=== PATIENT | female | born 1980 | race African-American/Black ===

== ENCOUNTER 2019-08-13 21:05 | Inpatient (IN) | payer OTHER ==
[2019-08-13 22:22] VITALS: BMI 25.4
--- NOTE | 2019-08-14 03:34 | HP ---
CIWA Score Nausea/Vomitin Muscle Tremors: 4-Moderate,w/Arms Extend Anxiety: 3 Agitation: 3 Paroxysmal Sweats: 2 Orientation: 3-Disoriented Date>2 days Tacttile Disturbances: 0-None Auditory Disturbances: 0-None Visual Disturbances: 0-None Headache: 3-Moderate CIWA-Ar Total Score: 20 - Admission Criteria OASAS Guidelines: Admission for Medically Managed Detox: Requires at least one of the followin. CIWA greater than 12 2. Seizures within the past 24 hours 3. Delirium tremens within the past 24 hours 4. Hallucinations within the past 24 hours 5. Acute intervention needed for co occurring medical disorder 6. Acute intervention needed for co occurring psychiatric disorder 7. Severe withdrawal that cannot be handled at a lower level of care (continued vomiting, continued diarrhea, abnormal vital signs) requiring intravenous medication and/or fluids 8. Admission ROS S - [facility] Chief Complaint: Alcohol withdrawal symptoms Allergies/Adverse Reactions: Allergies Allergy/AdvReac Type Severity Reaction Status Date / Time No Known Allergies Allergy Verified 08/13/19 21:59 History of Present Illness: 39 years old female with a long history of alcohol dependence is seeking admission to detox. Patient reports prior detox admissions, last at [place], [place]. She reports medical history of anemia, heart murmur and psych. history of depression and anxiety. She reports suicide attempt in 2019 and denies suicidal ideation at this time. 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 Exam Limitations: No Limitations - Ebola screening Have you traveled outside of the country in the last 21 days: No (N) Have you had contact with anyone from an Ebola affected area: No Do you have a fever: No - Review of Systems Constitutional: Chills, Malaise, Night Sweats, Changes in sleep EENT: reports: Nose Congestion Respiratory: reports: No Symptoms reported Cardiac: reports: No Symptoms Reported GI: reports: Nausea, Poor Fluid Intake, Abdominal cramping : reports: No Symptoms Reported Musculoskeletal: reports: Back Pain, Muscle Pain Integumentary: reports: Dryness, Flushing Neuro: reports: Headache, Tremors Endocrine: reports: No Symptoms Reported Hematology: reports: Anemia (iron deficient anemia) Psychiatric: reports: Anxious, Depressed Other Systems: Reviewed and Negative Patient History - Patient Medical History Hx Anemia: Yes (Iron) Hx Asthma: No Hx Chronic Obstructive Pulmonary Disease (COPD): No Hx Cancer: No Hx Cardiac Disorders: Yes (Heart murmur) Hx Congestive Heart Failure: No Hx Hypertension: No Hx Hypercholesterolemia: No Hx Pacemaker: No HX Cerebrovascular Accident: No Hx Seizures: No Hx Diabetes: No Hx Gastrointestinal Disorders: No Hx Liver Disease: No Hx Genitourinary Disorders: No Hx Sexually Transmitted Disorders: No Hx Renal Disease (ESRD): No Hx Thyroid Disease: No Hx Human Immunodeficiency Virus (HIV): No (Negative 2018) Hx Hepatitis C: No Hx Depression: Yes Hx Suicide Attempt: Yes (Attempt in 2019, denies suicidal ideation at this time) Hx Bipolar Disorder: No Hx Schizophrenia: No Other Medical History: Anxiety - Patient Surgical History Past Surgical History: Yes Hx Neurologic Surgery: No Hx Cataract Extraction: No Hx Cardiac Surgery: No Hx Lung Surgery: No Hx Breast Surgery: No Hx Breast Biopsy: No Hx Abdominal Surgery: No Hx Appendectomy: No Hx Cholecystectomy: No Hx Genitourinary Surgery: No Hx Section: No Hx Orthopedic Surgery: No Hx Hysterectomy: No Other Surgical History: TUBAL LIGATION 2005 Anesthesia Reaction: No - PPD History Previous Implant?: Yes Documented Results: Negative w/o proof Implanted On Prior R Admission?: No PPD to be Administered?: Yes - Reproductive History Patient is a Female of Child Bearing Age (11 -55 yrs old): Yes Last Menstrual Period: 07/04/19 Patient : No - Smoking Cessation Smoking history: Current every day smoker Have you smoked in the past 12 months: Yes Aproximately how many cigarettes per day: 10 Hx Chewing Tobacco Use: No Initiated information on smoking cessation: Yes 'Breaking Loose' booklet given: 08/14/19 - Substance & Tx. History Hx Alcohol Use: Yes Hx Substance Use: Yes Substance Use Type: Alcohol, Cocaine, Marijuana Hx Substance Use Treatment: Yes ([place], [place]) - Substances abused Crack Substance route: Smoking Frequency: Daily Amount used: more than 8 balls. Age of first use: 33 Date of last use: 08/13/19 Alcohol Substance route: Oral Frequency: Daily Amount used: 1 galloon or 20 of beers. Age of first use: 20 Date of last use: 08/12/19 Admission Physical Exam [facility] - Vital Signs Vital Signs: Vital Signs - 24 hr 08/13/19 08/13/19 21:59 22:59 Temperature 97.1 F L 97.1 F L Pulse Rate 91 H 91 H Respiratory 20 20 Rate Blood Pressure 118/76 118/76 - Physical General Appearance: Yes: Tremorous, Anxious HEENTM: Yes: Within Normal Limits Respiratory: Yes: Lungs Clear, Normal Breath Sounds, No Respiratory Distress Neck: Yes: Supple Breast: Yes: Breast Exam Deferred Cardiology: Yes: Regular Rhythm, Regular Rate Abdominal: Yes: Normal Bowel Sounds Genitourinary: Yes: Within Normal Limits Back: Yes: Normal Inspection Musculoskeletal: Yes: Back pain, Muscle Pain Extremities: Yes: Tremors Neurological: Yes: Within Normal Limits Integumentary: Yes: Warm Lymphatic: Yes: Within Normal Limits - Diagnostic (1) Alcohol dependence with withdrawal, uncomplicated Current Visit: Yes Status: Acute (2) Nicotine dependence Current Visit: Yes Status: Chronic Qualifiers: Nicotine product type: cigarettes Substance use status: in withdrawal Qualified Code(s): F17.213 - Nicotine dependence, cigarettes, with withdrawal (3) Anemia Current Visit: Yes Status: Chronic Qualifiers: Anemia type: iron deficiency (4) Heart murmur Current Visit: Yes Status: Chronic (5) Depression Current Visit: Yes Status: Chronic Qualifiers: Depression Type: unspecified Qualified Code(s): F32.9 - Major depressive disorder, single episode, unspecified (6) Anxiety Current Visit: Yes Status: Chronic Cleared for Admission S - Detox or Rehab [facility] Level of Care: Medically Managed Detox Regimen/Protocol: Librium Claeared for Rehab Admission: No Breathalyzer - Breathalyzer Breathalyzer: 0 Urine Drug Screen - Test Device Lot number: [id number] Expiration date: 02/20/21 - Control Is test valid?: Yes - Results Drug screen NEGATIVE: No Urine drug screen results: THC-Marijuana, BRIDGETT-Cocaine Inpatient Rehab Admission - Rehab Decision to Admit Inpatient rehab admission?: No
[2019-08-14] MEDS ORDERED: IBUPROFEN 400 MG TABLET (FP) PO PRN (03:48)
[2019-08-14] MEDS ORDERED: MAG HYDROX/AL HYDROX/SIMETH 30 ML UNIT-DOSE CUP PO PRN (03:48)
[2019-08-14] MEDS ORDERED: BISMUTH SUBSALICYLATE 524 MG/30 ML UD PO PRN (03:48)
[2019-08-14] MEDS ORDERED: NICOTINE POLACRILEX 2 MG GUM BUC PRN (03:48)
[2019-08-14] MEDS ORDERED: chlordiazePOXIDE HCL 25 MG CAPSULE PO PRN (03:48)
[2019-08-14] MEDS ORDERED: hydrOXYzine PAMOATE 25 MG CAPSULE (FP) PO PRN (03:48)
[2019-08-14] MEDS ORDERED: ACETAMINOPHEN 325 MG TABLET (FP) PO PRN (03:48)
[2019-08-14] MEDS ORDERED: MAGNESIUM HYDROX 2400MG/30ML ORAL SUSPENSION 30 ML CUP PO PRN (03:48)
[2019-08-14] MEDS ORDERED: MAGNESIUM CITRATE 300 ML BOTTLE PO PRN (03:48)
[2019-08-14] MEDS: chlordiazePOXIDE HCL 25 MG CAPSULE PO SCH ×4 (04:46→22:12)
[2019-08-14] MEDS: METHOCARBAMOL 500 MG TABLET PO PRN ×2 (04:46→22:12)
[2019-08-14] MEDS: ACETAMINOPHEN 325 MG TABLET (FP) PO PRN ×2 (04:51→17:35)
[2019-08-14] MEDS: NICOTINE 14 MG/24 HOURS TOPICAL PATCH TD SCH (10:10)
[2019-08-14] MEDS: PRENATAL VITAMINS W/ FOLIC ACID TABLET (FP) PO SCH (10:10)
--- NOTE | 2019-08-14 10:31 | EKG ---
Test Reason : Blood Pressure : / mmHG Vent. Rate : 076 BPM Atrial Rate : 076 BPM P-R Int : 144 ms QRS Dur : 084 ms QT Int : 396 ms P-R-T Axes : 052 068 054 degrees QTc Int : 445 ms NORMAL SINUS RHYTHM NORMAL ECG NO PREVIOUS ECGS AVAILABLE Confirmed by MELI NORTH, NICKY ([id number]) on 08/14/2019 10:30:51 AM Referred By: Reza Shepherd Confirmed By:NICKY GARRISON MD
--- NOTE | 2019-08-14 12:52 | PN ---
S CIWA - CIWA Score Nausea/Vomitin-Mild Nausea/No Vomiting Muscle Tremors: 4-Moderate,w/Arms Extend Anxiety: 3 Agitation: 2 Paroxysmal Sweats: 2 Orientation: 0-Oriented Tacttile Disturbances: 0-None Auditory Disturbances: 0-None Visual Disturbances: 1-Very Mild Sensitivity Headache: 2-Mild CIWA-Ar Total Score: 15 S Progress Note (SOAP) Subjective: 39 years old female admitted on 08/14/19 for alcohol withdrawal sx management treating with librium detox regiment feeling ok today but tired prefers to stay in bed today limited conversation with staff Objective: 08/14/19 12:51 Vital Signs Temperature 98.8 F 08/14/19 04:25 Pulse Rate 83 08/14/19 09:35 Respiratory Rate 16 08/14/19 09:35 Blood Pressure 122/87 08/14/19 09:35 O2 Sat by Pulse Oximetry (%) Laboratory Last Values POC Urine HCG, Qual Negative 08/13/19 23:14 08/14/19 12:51 lab noted Assessment: 08/14/19 12:51 alcohol withdrawal Plan: librium regimen
[2019-08-14] MEDS: THIAMINE HCL 100 MG TABLET (FP) PO SCH (22:11)
[2019-08-14] MEDS: MELATONIN 5 MG TABLETS PO PRN (22:12)
[2019-08-15] MEDS: chlordiazePOXIDE HCL 25 MG CAPSULE PO SCH ×4 (06:08→22:28)
[2019-08-15] MEDS: ACETAMINOPHEN 325 MG TABLET (FP) PO PRN ×2 (06:54→22:30)
[2019-08-15 10:20] LABS: HEMATOCRIT 36.3 % (32.4-45.2); HEMOGLOBIN 11.5 GM/dL (10.7-15.3); MCH 23.9 pg (25.7-33.7); MCHC 31.8 g/dl (32.0-36.0); MEAN CELL VOLUME 75.2 fl (80-96); MEAN PLT VOLUME 9.2 fl (7.5-11.1); PLATELET COUNT 174 K/MM3 (134-434); RBC 4.82 M/mm3 (3.60-5.2); RDW 15.4 % (11.6-15.6); WHITE BLOOD COUNT 3.4 K/mm3 (4.0-10.0)
[2019-08-15 10:31] LABS: BILIRUBIN,TOTAL 0.1 mg/dL (0.2-1); CALCIUM 8.5 mg/dL (8.5-10.1); CREATININE 0.8 mg/dL (0.55-1.3); POTASSIUM 3.9 mmol/L (3.5-5.1); TOT PROT 6.1 g/dl (6.4-8.2)
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
[2019-08-15] MEDS: PRENATAL VITAMINS W/ FOLIC ACID TABLET (FP) PO SCH (10:51)
[2019-08-15] MEDS: METHOCARBAMOL 500 MG TABLET PO PRN ×2 (10:52→17:35)
[2019-08-15] MEDS: SERTRALINE HCL 50 MG TABLET (FP) PO SCH (11:27)
[2019-08-15] MEDS: NICOTINE 14 MG/24 HOURS TOPICAL PATCH TD SCH (11:29)
--- NOTE | 2019-08-15 13:18 | PN ---
S CIWA - CIWA Score Nausea/Vomitin Muscle Tremors: 2 Anxiety: 3 Agitation: 1-Slight > Activity Paroxysmal Sweats: 1-Minimal Palms Moist Orientation: 0-Oriented Tacttile Disturbances: 1-Very Mild Itch/Numbness Auditory Disturbances: 0-None Visual Disturbances: 1-Very Mild Sensitivity Headache: 1-Very Mild CIWA-Ar Total Score: 12 [facility] Progress Note (SOAP) Subjective: Patient is a 39 years old female w/ hx of alcohol dependence on librium detox protocol c/o of interrupted sleep, hot and cold sweats, bodyaches. Objective: 08/15/19 13:17 Vital Signs Temperature 97.6 F 08/15/19 09:25 Pulse Rate 85 08/15/19 09:25 Respiratory Rate 16 08/15/19 09:25 Blood Pressure 114/75 08/15/19 09:25 O2 Sat by Pulse Oximetry (%) Laboratory Last Values WBC 3.4 K/mm3 (4.0-10.0) L 08/15/19 08:00 RBC 4.82 M/mm3 (3.60-5.2) 08/15/19 08:00 Hgb 11.5 GM/dL (10.7-15.3) 08/15/19 08:00 Hct 36.3 % (32.4-45.2) 08/15/19 08:00 MCV 75.2 fl (80-96) L 08/15/19 08:00 MCH 23.9 pg (25.7-33.7) L 08/15/19 08:00 MCHC 31.8 g/dl (32.0-36.0) L 08/15/19 08:00 RDW 15.4 % (11.6-15.6) 08/15/19 08:00 Plt Count 174 K/MM3 (134-434) 08/15/19 08:00 MPV 9.2 fl (7.5-11.1) 08/15/19 08:00 Sodium 139 mmol/L (136-145) 08/15/19 08:00 Potassium 3.9 mmol/L (3.5-5.1) 08/15/19 08:00 Chloride 107 mmol/L (98-107) 08/15/19 08:00 Carbon Dioxide 26 mmol/L (21-32) 08/15/19 08:00 Anion Gap 6 MMOL/L (8-16) L 08/15/19 08:00 BUN 10.0 mg/dL (7-18) 08/15/19 08:00 Creatinine 0.8 mg/dL (0.55-1.3) 08/15/19 08:00 Est GFR (CKD-EPI)AfAm 106.13 08/15/19 08:00 Est GFR (CKD-EPI)NonAf 91.57 08/15/19 08:00 Random Glucose 85 mg/dL (74-106) 08/15/19 08:00 Calcium 8.5 mg/dL (8.5-10.1) 08/15/19 08:00 Total Bilirubin 0.1 mg/dL (0.2-1) L 08/15/19 08:00 AST 16 U/L (15-37) 08/15/19 08:00 ALT 15 U/L (13-61) 08/15/19 08:00 Alkaline Phosphatase 79 U/L (45-117) 08/15/19 08:00 Total Protein 6.1 g/dl (6.4-8.2) L 08/15/19 08:00 Albumin 3.0 g/dl (3.4-5.0) L 08/15/19 08:00 POC Urine HCG, Qual Negative 08/13/19 23:14 labs reviewed Assessment: 08/15/19 13:17 Patient AOx3 no acute distress EENT WNL Full ROM ambulating in the unit withdrawal sx Plan: increase fluids continue detox continue to monitor
[2019-08-15] MEDS: THIAMINE HCL 100 MG TABLET (FP) PO SCH (22:28)
[2019-08-15] MEDS: traZODone HCL 50 MG TABLET (FP) PO SCH (22:28)
[2019-08-16] MEDS ORDERED: chlordiazePOXIDE HCL 10 MG CAPSULE PO PRN
[2019-08-16] MEDS: chlordiazePOXIDE HCL 10 MG CAPSULE PO SCH ×4 (05:28→22:05)
[2019-08-16] MEDS: PRENATAL VITAMINS W/ FOLIC ACID TABLET (FP) PO SCH (10:09)
[2019-08-16] MEDS: SERTRALINE HCL 50 MG TABLET (FP) PO SCH (10:09)
[2019-08-16] MEDS: NICOTINE 14 MG/24 HOURS TOPICAL PATCH TD SCH (10:10)
--- NOTE | 2019-08-16 12:35 | PN ---
[facility] CIWA - CIWA Score Nausea/Vomitin-No Nausea/No Vomiting Muscle Tremors: 2 Anxiety: 2 Agitation: 1-Slight > Activity Paroxysmal Sweats: 2 Orientation: 0-Oriented Tacttile Disturbances: 1-Very Mild Itch/Numbness Auditory Disturbances: 0-None Visual Disturbances: 1-Very Mild Sensitivity Headache: 3-Moderate CIWA-Ar Total Score: 12 S Progress Note (SOAP) Subjective: Patient c/o back pain, headache, interrupted sleep, sweats. Denies parethesia or visual changes Objective: 08/16/19 12:35 Vital Signs Temperature 98.1 F 08/16/19 09:08 Pulse Rate 77 08/16/19 09:08 Respiratory Rate 16 08/16/19 09:08 Blood Pressure 107/67 08/16/19 09:08 O2 Sat by Pulse Oximetry (%) Laboratory Last Values WBC 3.4 K/mm3 (4.0-10.0) L 08/15/19 08:00 RBC 4.82 M/mm3 (3.60-5.2) 08/15/19 08:00 Hgb 11.5 GM/dL (10.7-15.3) 08/15/19 08:00 Hct 36.3 % (32.4-45.2) 08/15/19 08:00 MCV 75.2 fl (80-96) L 08/15/19 08:00 MCH 23.9 pg (25.7-33.7) L 08/15/19 08:00 MCHC 31.8 g/dl (32.0-36.0) L 08/15/19 08:00 RDW 15.4 % (11.6-15.6) 08/15/19 08:00 Plt Count 174 K/MM3 (134-434) 08/15/19 08:00 MPV 9.2 fl (7.5-11.1) 08/15/19 08:00 Sodium 139 mmol/L (136-145) 08/15/19 08:00 Potassium 3.9 mmol/L (3.5-5.1) 08/15/19 08:00 Chloride 107 mmol/L (98-107) 08/15/19 08:00 Carbon Dioxide 26 mmol/L (21-32) 08/15/19 08:00 Anion Gap 6 MMOL/L (8-16) L 08/15/19 08:00 BUN 10.0 mg/dL (7-18) 08/15/19 08:00 Creatinine 0.8 mg/dL (0.55-1.3) 08/15/19 08:00 Est GFR (CKD-EPI)AfAm 106.13 08/15/19 08:00 Est GFR (CKD-EPI)NonAf 91.57 08/15/19 08:00 Random Glucose 85 mg/dL (74-106) 08/15/19 08:00 Calcium 8.5 mg/dL (8.5-10.1) 08/15/19 08:00 Total Bilirubin 0.1 mg/dL (0.2-1) L 08/15/19 08:00 AST 16 U/L (15-37) 08/15/19 08:00 ALT 15 U/L (13-61) 08/15/19 08:00 Alkaline Phosphatase 79 U/L (45-117) 08/15/19 08:00 Total Protein 6.1 g/dl (6.4-8.2) L 08/15/19 08:00 Albumin 3.0 g/dl (3.4-5.0) L 08/15/19 08:00 POC Urine HCG, Qual Negative 08/13/19 23:14 RPR Titer Nonreactive (NONREACTIVE) 08/15/19 08:00 labs reviewed Assessment: 08/16/19 15:21 Ao x3 no acute distress EENT WNL Full ROM no gait disturbance, ambulating in the unit withdrawal sx Plan: continue detox continue to monitor
[2019-08-16] MEDS: THIAMINE HCL 100 MG TABLET (FP) PO SCH (22:05)
[2019-08-16] MEDS: traZODone HCL 50 MG TABLET (FP) PO SCH (22:05)
[2019-08-16] MEDS: METHOCARBAMOL 500 MG TABLET PO PRN (22:06)
[2019-08-16] MEDS: MENTHOL/PHENOL 1 EACH UD MM PRN (22:30)
[2019-08-17] MEDS: chlordiazePOXIDE HCL 10 MG CAPSULE PO SCH ×2 (07:39→17:59)
[2019-08-17] MEDS: SERTRALINE HCL 50 MG TABLET (FP) PO SCH (10:13)
[2019-08-17] MEDS: PRENATAL VITAMINS W/ FOLIC ACID TABLET (FP) PO SCH (10:13)
[2019-08-17] MEDS: NICOTINE 14 MG/24 HOURS TOPICAL PATCH TD SCH (10:14)
[2019-08-17] MEDS: METHOCARBAMOL 500 MG TABLET PO PRN ×2 (10:15→18:01)
--- NOTE | 2019-08-17 13:02 | PN ---
[facility] CIWA - CIWA Score Nausea/Vomitin-No Nausea/No Vomiting Muscle Tremors: None Anxiety: 2 Agitation: 0-Normal Activity Paroxysmal Sweats: 2 Orientation: 0-Oriented Tacttile Disturbances: 0-None Auditory Disturbances: 0-None Visual Disturbances: 0-None Headache: 1-Very Mild CIWA-Ar Total Score: 5 S Progress Note (SOAP) Subjective: c/o mild withdrawal symptoms. Objective: 08/17/19 13:01 Vital Signs 08/17/19 08/17/19 08/17/19 06:28 06:30 09:07 Temperature 98.7 F 96.9 F L Pulse Rate 83 77 Respiratory 18 18 16 Rate Blood Pressure 101/60 99/66 Laboratory Last Values WBC 3.4 K/mm3 (4.0-10.0) L 08/15/19 08:00 RBC 4.82 M/mm3 (3.60-5.2) 08/15/19 08:00 Hgb 11.5 GM/dL (10.7-15.3) 08/15/19 08:00 Hct 36.3 % (32.4-45.2) 08/15/19 08:00 MCV 75.2 fl (80-96) L 08/15/19 08:00 MCH 23.9 pg (25.7-33.7) L 08/15/19 08:00 MCHC 31.8 g/dl (32.0-36.0) L 08/15/19 08:00 RDW 15.4 % (11.6-15.6) 08/15/19 08:00 Plt Count 174 K/MM3 (134-434) 08/15/19 08:00 MPV 9.2 fl (7.5-11.1) 08/15/19 08:00 Sodium 139 mmol/L (136-145) 08/15/19 08:00 Potassium 3.9 mmol/L (3.5-5.1) 08/15/19 08:00 Chloride 107 mmol/L (98-107) 08/15/19 08:00 Carbon Dioxide 26 mmol/L (21-32) 08/15/19 08:00 Anion Gap 6 MMOL/L (8-16) L 08/15/19 08:00 BUN 10.0 mg/dL (7-18) 08/15/19 08:00 Creatinine 0.8 mg/dL (0.55-1.3) 08/15/19 08:00 Est GFR (CKD-EPI)AfAm 106.13 08/15/19 08:00 Est GFR (CKD-EPI)NonAf 91.57 08/15/19 08:00 Random Glucose 85 mg/dL (74-106) 08/15/19 08:00 Calcium 8.5 mg/dL (8.5-10.1) 08/15/19 08:00 Total Bilirubin 0.1 mg/dL (0.2-1) L 08/15/19 08:00 AST 16 U/L (15-37) 08/15/19 08:00 ALT 15 U/L (13-61) 08/15/19 08:00 Alkaline Phosphatase 79 U/L (45-117) 08/15/19 08:00 Total Protein 6.1 g/dl (6.4-8.2) L 08/15/19 08:00 Albumin 3.0 g/dl (3.4-5.0) L 08/15/19 08:00 POC Urine HCG, Qual Negative 08/13/19 23:14 RPR Titer Nonreactive (NONREACTIVE) 08/15/19 08:00 Labs noted. Assessment: 08/17/19 13:01 AOX3, in no acute respiratory distress. Full ROM, ambulating in the unit. Mild Withdrawal symptoms. For d/c tomorrow. Plan: continue detox. D/C in AM.
[2019-08-17] MEDS: ACETAMINOPHEN 325 MG TABLET (FP) PO PRN (18:00)
[2019-08-17] MEDS: THIAMINE HCL 100 MG TABLET (FP) PO SCH (22:26)
[2019-08-17] MEDS: traZODone HCL 50 MG TABLET (FP) PO SCH (22:27)
[2019-08-17] MEDS: MENTHOL/PHENOL 1 EACH UD MM PRN (22:27)
[2019-08-17] MEDS: MELATONIN 5 MG TABLETS PO PRN (22:27)
[2019-08-18] MEDS ORDERED: chlordiazePOXIDE HCL 10 MG CAPSULE PO ONE (05:00)
[2019-08-18 09:20] VITALS: BP 104/71; PULSE 100; TEMP 98.1
--- NOTE | 2019-08-18 13:22 | DS ---
[facility] Detox Discharge Summary Admission Date: 08/14/19 Discharge Date: 08/18/19 - History Present History: Alcohol Dependence Additional Comments: 39 years old female admitted on 08/14/19 for alcohol withdrawal sx managemenet treated wtih librium detox regiment patient has completed librium regiment and tolerated well alert oriented x 3 seen by psychiatrist resume zoloft and tranzodone respiratory clear lungs bilaterally on auscultation abdomen soft no rebound tenderness skin warm and dry - Physical Exam Results Vital Signs: Vital Signs Temperature 98.1 F 08/18/19 09:20 Pulse Rate 100 H 08/18/19 09:20 Respiratory Rate 18 08/18/19 09:20 Blood Pressure 104/71 08/18/19 09:20 O2 Sat by Pulse Oximetry (%) Pertinent Admission Physical Exam Findings: alcohol withdrawal Laboratory Last Values WBC 3.4 K/mm3 (4.0-10.0) L 08/15/19 08:00 RBC 4.82 M/mm3 (3.60-5.2) 08/15/19 08:00 Hgb 11.5 GM/dL (10.7-15.3) 08/15/19 08:00 Hct 36.3 % (32.4-45.2) 08/15/19 08:00 MCV 75.2 fl (80-96) L 08/15/19 08:00 MCH 23.9 pg (25.7-33.7) L 08/15/19 08:00 MCHC 31.8 g/dl (32.0-36.0) L 08/15/19 08:00 RDW 15.4 % (11.6-15.6) 08/15/19 08:00 Plt Count 174 K/MM3 (134-434) 08/15/19 08:00 MPV 9.2 fl (7.5-11.1) 08/15/19 08:00 Sodium 139 mmol/L (136-145) 08/15/19 08:00 Potassium 3.9 mmol/L (3.5-5.1) 08/15/19 08:00 Chloride 107 mmol/L (98-107) 08/15/19 08:00 Carbon Dioxide 26 mmol/L (21-32) 08/15/19 08:00 Anion Gap 6 MMOL/L (8-16) L 08/15/19 08:00 BUN 10.0 mg/dL (7-18) 08/15/19 08:00 Creatinine 0.8 mg/dL (0.55-1.3) 08/15/19 08:00 Est GFR (CKD-EPI)AfAm 106.13 08/15/19 08:00 Est GFR (CKD-EPI)NonAf 91.57 08/15/19 08:00 Random Glucose 85 mg/dL (74-106) 08/15/19 08:00 Calcium 8.5 mg/dL (8.5-10.1) 08/15/19 08:00 Total Bilirubin 0.1 mg/dL (0.2-1) L 08/15/19 08:00 AST 16 U/L (15-37) 08/15/19 08:00 ALT 15 U/L (13-61) 08/15/19 08:00 Alkaline Phosphatase 79 U/L (45-117) 08/15/19 08:00 Total Protein 6.1 g/dl (6.4-8.2) L 08/15/19 08:00 Albumin 3.0 g/dl (3.4-5.0) L 08/15/19 08:00 POC Urine HCG, Qual Negative 08/13/19 23:14 RPR Titer Nonreactive (NONREACTIVE) 08/15/19 08:00 lab noted - Treatment Hospital Course: Detox Protocol Followed, Detoxed Safely, Responded well, Discharged Condition Good, Rehab Referral Accepted Patient has Accepted [facility] - Medication Discharge Medications: Ambulatory Orders Sertraline HCl [Zoloft] 50 mg PO DAILY 08/13/19 - Diagnosis (1) Alcohol dependence with withdrawal, uncomplicated Status: Acute (2) Nicotine dependence Status: Acute Qualifiers: Nicotine product type: cigarettes Substance use status: in withdrawal Qualified Code(s): F17.213 - Nicotine dependence, cigarettes, with withdrawal - AMA Did Patient Leave Against Medical Advice: No CIWA Score - CIWA Score Nausea/Vomitin-No Nausea/No Vomiting Muscle Tremors: None Anxiety: 1-Mildly Anxious Agitation: 0-Normal Activity Paroxysmal Sweats: 1-Minimal Palms Moist Orientation: 0-Oriented Tacttile Disturbances: 0-None Auditory Disturbances: 0-None Visual Disturbances: 0-None Headache: 0-None Present CIWA-Ar Total Score: 2
== END 2019-08-18 09:48 | disposition home or self-care (01) | DRG 774 ==
LOC: YASAS 21:05 → Y3N 08-14 03:42
PROVIDERS: ADMIT Allergy & Immunology; ATTEND Allergy & Immunology
PROC: HZ2ZZZZ Detoxification Services for Substance Abuse Treatment (ICD-10-PCS; principal; 2019-08-14)
DX: F10.230 Alcohol dependence with withdrawal, uncomplicated (principal); F14.20 Cocaine dependence, uncomplicated; F12.20 Cannabis dependence, uncomplicated; F17.213 Nicotine dependence, cigarettes, with withdrawal; F32.9 Major depressive disorder, single episode, unspecified; F19.282 Other psychoactive substance dependence with psychoactive substance-induced sleep disorder; F41.9 Anxiety disorder, unspecified; R01.1 Cardiac murmur, unspecified; D50.9 Iron deficiency anemia, unspecified; Z91.5 Personal history of self-harm
CPT/HCPCS: 36415; 80053; 81025; 85027; 86593; 93005; 93010

== ENCOUNTER 2019-08-20 08:12 | Inpatient (IN) | payer OTHER ==
[2019-08-20 09:02] VITALS: BMI 25.7
--- NOTE | 2019-08-20 10:25 | HP ---
CIWA Score Nausea/Vomitin-Mild Nausea/No Vomiting Muscle Tremors: 1-None Visible, but [place] Anxiety: 0-No Anxiety, at Ease Agitation: 0-Normal Activity Paroxysmal Sweats: No Perspiration Orientation: 0-Oriented Tacttile Disturbances: 0-None Auditory Disturbances: 0-None Visual Disturbances: 1-Very Mild Sensitivity Headache: 0-None Present CIWA-Ar Total Score: 3 - Admission Criteria OASAS Guidelines: Admission for Medically Managed Detox: Requires at least one of the followin. CIWA greater than 12 2. Seizures within the past 24 hours 3. Delirium tremens within the past 24 hours 4. Hallucinations within the past 24 hours 5. Acute intervention needed for co occurring medical disorder 6. Acute intervention needed for co occurring psychiatric disorder 7. Severe withdrawal that cannot be handled at a lower level of care (continued vomiting, continued diarrhea, abnormal vital signs) requiring intravenous medication and/or fluids 8. Admitting History and Physical - Admission History of Present Illness: 39year old female with history of alcohol dependence who was s/p detox here at [facility] and had referral to admission to [facility] for Rehab but missed appointment due to transportation issue. She is here now and requesting rehab at [facility]. - Past Medical History ...LMP: 07/04/19 - Smoking History Smoking history: Current every day smoker Have you smoked in the past 12 months: Yes Aproximately how many cigarettes per day: 10 - Alcohol/Substance Use Hx Alcohol Use: Yes Admission [facility] Allergies/Adverse Reactions: Allergies Allergy/AdvReac Type Severity Reaction Status Date / Time No Known Allergies Allergy Verified 08/20/19 08:54 - Ebola screening Have you traveled outside of the country in the last 21 days: No Have you had contact with anyone from an Ebola affected area: No Do you have a fever: No Patient History - Patient Medical History Hx Anemia: Yes (Iron) Hx Asthma: No Hx Chronic Obstructive Pulmonary Disease (COPD): No Hx Cancer: No Hx Cardiac Disorders: No Hx Congestive Heart Failure: No Hx Hypertension: No Hx Hypercholesterolemia: No Hx Pacemaker: No HX Cerebrovascular Accident: No Hx Seizures: No Hx Diabetes: No Hx Gastrointestinal Disorders: No Hx Liver Disease: No Hx Genitourinary Disorders: No Hx Sexually Transmitted Disorders: No Hx Renal Disease (ESRD): No Hx Thyroid Disease: No Hx Human Immunodeficiency Virus (HIV): No (Negative 2019) Hx Hepatitis C: No Hx Depression: Yes Hx Suicide Attempt: No Hx Bipolar Disorder: No Hx Schizophrenia: No Other Medical History: History of Migraine Headaches - Patient Surgical History Past Surgical History: Yes Hx Neurologic Surgery: No Hx Cataract Extraction: No Hx Cardiac Surgery: No Hx Lung Surgery: No Hx Breast Surgery: No Hx Breast Biopsy: No Hx Abdominal Surgery: No Hx Appendectomy: No Hx Cholecystectomy: No Hx Genitourinary Surgery: No Hx Section: No Hx Orthopedic Surgery: No Hx Hysterectomy: No Other Surgical History: TUBAL LIGATION 2005 Anesthesia Reaction: No - PPD History Previous Implant?: Yes Documented Results: Negative w/proof Date: 08/16/19 Results: negative PPD to be Administered?: No - Reproductive History Last Menstrual Period: 07/04/19 - Smoking Cessation Smoking history: Current every day smoker Have you smoked in the past 12 months: Yes Aproximately how many cigarettes per day: 10 Hx Chewing Tobacco Use: No Initiated information on smoking cessation: Yes 'Breaking Loose' booklet given: 08/20/19 - Substance & Tx. History Hx Alcohol Use: Yes Substance Use Type: Alcohol, Cocaine - Substances abused Alcohol Substance route: Oral Frequency: Daily Amount used: 2.5 pints Age of first use: 30 Date of last use: 08/20/19 Crack Substance route: Smoking Frequency: Daily Amount used: 3 bags Age of first use: 33 Date of last use: 08/20/19 Admission Physical Exam [facility] - Vital Signs Vital Signs: Vital Signs - 24 hr 08/20/19 08:43 Temperature 98.5 F Pulse Rate 103 H Respiratory 18 Rate Blood Pressure 116/72 - Physical General Appearance: Yes: No Apparent Distress, Tremorous HEENTM: Yes: EOMI, Hearing grossly Normal, Normal ENT Inspection, Normocephalic , Normal Voice, DUNG, Pharynx Normal, Tm's normal, Other (opened posterior and anterior fontanelles mass over right upper eyelid) Respiratory: Yes: Chest Non-Tender, Lungs Clear, Normal Breath Sounds, No Respiratory Distress, No Accessory Muscle Use Neck: Yes: No masses,lesions,Nodules, Supple, Trachea in good position Breast: Yes: Breast Exam Deferred Cardiology: Yes: Regular Rhythm, Regular Rate, S1, S2 Abdominal: Yes: Normal Bowel Sounds, Non Tender, Flat, Soft Genitourinary: Yes: Within Normal Limits Back: Yes: Normal Inspection Musculoskeletal: Yes: full range of Motion, Gait Steady, Pelvis Stable Extremities: Yes: Normal Capillary Refill, Normal Inspection, Normal Range of Motion, Non-Tender Neurological: Yes: natural resources manager II-XII NML intact, Fully Oriented, Alert, Motor Strength 5/5, Normal Mood/Affect, Normal Response Integumentary: Yes: Normal Color, Warm Lymphatic: Yes: Within Normal Limits - Diagnostic (1) Cocaine use disorder Current Visit: Yes Status: Chronic (2) Marijuana dependence Current Visit: Yes Status: Chronic (3) Nicotine dependence Current Visit: Yes Status: Chronic Qualifiers: Nicotine product type: cigarettes Substance use status: in withdrawal Qualified Code(s): F17.213 - Nicotine dependence, cigarettes, with withdrawal (4) Depression Current Visit: Yes Status: Chronic Qualifiers: Depression Type: unspecified Qualified Code(s): F32.9 - Major depressive disorder, single episode, unspecified (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 Status: Chronic Cleared for Admission [facility] - Detox or Rehab [facility] Level of Care: Medically Supervised Detox Regimen/Protocol: Not Applicable Claeared for Rehab Admission: Yes Screened but not Admitted - Documentation of Visit Screened but not Admitted: No Breathalyzer - Breathalyzer Breathalyzer: 0 Urine Drug Screen - Test Device Lot number: [id number] Expiration date: 02/20/21 - Control Is test valid?: Yes - Results Drug screen NEGATIVE: No Urine drug screen results: THC-Marijuana, BRIDGETT-Cocaine Inpatient Rehab Admission - Rehab Decision to Admit Inpatient rehab admission?: Yes - Initial Determination Are CD services needed?: Yes Free of communicable disease: Yes Not in need of hospitalization: Yes - Rehab Admission Criteria Previous failed treatment: Yes Poor recovery environment: Yes Comorbidities: Yes Lacks judgement: Yes Patient is meeting Inpatient Rehab admission criteria:: Yes
[2019-08-20] MEDS ORDERED: LOPERAMIDE HCL 2 MG CAPSULE PO PRN (10:35)
[2019-08-20] MEDS ORDERED: guaiFENesin 200 MG/10 ML 10 ML UNIT-DOSE CUPS PO PRN (10:35)
[2019-08-20] MEDS ORDERED: MAGNESIUM CITRATE 300 ML BOTTLE PO PRN (10:35)
[2019-08-20] MEDS ORDERED: MAG HYDROX/AL HYDROX/SIMETH 30 ML UNIT-DOSE CUP PO PRN (10:35)
[2019-08-20] MEDS ORDERED: P-EPHED 60MG/TRIPROLIDI 2.5MG TABLET PO PRN (10:35)
[2019-08-20] MEDS ORDERED: MAGNESIUM HYDROX 2400MG/30ML ORAL SUSPENSION 30 ML CUP PO PRN (10:35)
[2019-08-20] MEDS: SERTRALINE HCL 50 MG TABLET (FP) PO SCH (12:26)
[2019-08-20] MEDS: NICOTINE 7 MG/24 HOURS TOPICAL PATCH TD SCH (12:26)
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
[2019-08-20] MEDS: THIAMINE HCL 100 MG TABLET (FP) PO SCH (21:22)
[2019-08-20] MEDS: traZODone HCL 100 MG TABLET (FP) PO SCH (21:22)
[2019-08-20] MEDS: IBUPROFEN 400 MG TABLET (FP) PO PRN (21:23)
[2019-08-20] MEDS: MENTHOL/PHENOL 1 EACH UD MM PRN (21:25)
[2019-08-20] MEDS ORDERED: traZODone HCL 50 MG TABLET (FP) PO SCH (22:00)
[2019-08-20] MEDS ORDERED: TUBERCULIN PPD 5 TU/0.1ML VIAL ID ONE (22:41)
[2019-08-21] MEDS ORDERED: PNEUMOC 13-VAL CONJ-DIP CRM/PF 0.5 ML DISP.SYRIN IM ONE (06:30)
[2019-08-21] MEDS: NICOTINE 7 MG/24 HOURS TOPICAL PATCH TD SCH (10:08)
[2019-08-21] MEDS: PRENATAL VITAMINS W/ FOLIC ACID TABLET (FP) PO SCH (10:09)
[2019-08-21] MEDS: SERTRALINE HCL 50 MG TABLET (FP) PO SCH (10:09)
[2019-08-21] MEDS: IBUPROFEN 400 MG TABLET (FP) PO PRN ×2 (10:10→21:19)
[2019-08-21] MEDS ORDERED: PNEUMOCOCCAL 23 VACCINE 0.5 ML VIAL IM ONE (12:00)
[2019-08-21] MEDS ORDERED: FLU VACCINE QUAD 60 MCG/0.5 ML (MDV 19-20) IM ONE (12:00)
--- NOTE | 2019-08-21 14:25 | PN ---
[facility] Progress Note (SOAP) Subjective: Patient c/o pain in left foot, starting when she woke up this morning. Objective: 08/21/19 14:21 Vital Signs Period Temp Pulse Resp BP Sys/More Pulse Ox Last 24 Hr 98.0 F 85 18-18 97/63 08/21/19 14:22 General: no apparent distress HEENTM: PERRLA Lungs: clear Heart: s1 s2 Extremities: Left ankle with slight, non-pitting edema, warm to touch and equal bilaterally, +pedal pulses, color equal bilaterally. Dry scally skin, both feet , with fungal nails. Assessment: ankle edema 08/21/19 14:24 Plan: Motrin as needed, elevate extremity while at rest.
[2019-08-21] MEDS: ACETAMINOPHEN 325 MG TABLET (FP) PO PRN (14:26)
[2019-08-21] MEDS: THIAMINE HCL 100 MG TABLET (FP) PO SCH (21:19)
[2019-08-21] MEDS: traZODone HCL 100 MG TABLET (FP) PO SCH (21:19)
[2019-08-22] MEDS ORDERED: PT OWN MED DRAWER 7, Y5N ONE (09:04)
[2019-08-22] MEDS: NICOTINE 7 MG/24 HOURS TOPICAL PATCH TD SCH (09:42)
[2019-08-22] MEDS: PRENATAL VITAMINS W/ FOLIC ACID TABLET (FP) PO SCH (09:43)
[2019-08-22] MEDS: SERTRALINE HCL 50 MG TABLET (FP) PO SCH (09:43)
[2019-08-22] MEDS: IBUPROFEN 400 MG TABLET (FP) PO PRN ×2 (09:44→16:56)
[2019-08-22] MEDS ORDERED: COLLOIDAL OATMEAL 1 BAR EACH TP PRN (14:13)
[2019-08-22 17:19] LABS: EPI CELLS 1.6 /HPF (0-5/HPF); HYALINE CASTS 0 /lpf (0-8); PH,URINE 7.5 (5.0-8.0); URINE APPEARANCE CLEAR; URINE BACTERIA 24.8 /hpf (NEGATIVE); URINE BILIRUBIN NEGATIVE (NEGATIVE); URINE COLOR YELLOW; URINE GLUCOSE (UA) NEGATIVE (NEGATIVE); URINE KETONE NEGATIVE (NEGATIVE); URINE LEUK ESTERASE NEGATIVE (NEGATIVE); URINE NITRITE NEGATIVE (NEGATIVE); URINE PROTEIN NEGATIVE (NEGATIVE); URINE RBC 176 /hpf (0-4); URINE UROBILINOGEN 0.2 mg/dL (0.2-1.0); URINE WBC 1 /hpf (0-5)
[2019-08-22] MEDS: THIAMINE HCL 100 MG TABLET (FP) PO SCH (21:49)
[2019-08-22] MEDS: ACETAMINOPHEN 325 MG TABLET (FP) PO PRN (21:49)
[2019-08-22] MEDS: MELATONIN 5 MG TABLETS PO PRN (21:50)
[2019-08-22] MEDS: MENTHOL/PHENOL 1 EACH UD MM PRN (21:52)
[2019-08-23] MEDS ORDERED: NAPHAZOLINE 0.1% OPHTHALMIC SOLUTION 15 ML BOTTLE OD PRN (07:49)
--- NOTE | 2019-08-23 07:49 | PN ---
[facility] Progress Note Note: Vital Signs Temperature 97.7 F 08/23/19 07:17 Pulse Rate 76 08/23/19 07:17 Respiratory Rate 16 08/23/19 07:17 Blood Pressure 132/76 08/23/19 07:17 O2 Sat by Pulse Oximetry (%) seen for c/o irritated, watery right eye with redness. client reports that she woke up this way. denies trauma, irritant, visual disturbance, pain left eye noted with redness clear watery dc, injected conjunctiva. no swelling, denies tenderness p- naphcon eye gtts prn
[2019-08-23] MEDS: NICOTINE 7 MG/24 HOURS TOPICAL PATCH TD SCH (10:17)
[2019-08-23] MEDS: PRENATAL VITAMINS W/ FOLIC ACID TABLET (FP) PO SCH (10:18)
[2019-08-23] MEDS: SERTRALINE HCL 50 MG TABLET (FP) PO SCH (10:18)
[2019-08-23] MEDS: IBUPROFEN 400 MG TABLET (FP) PO PRN ×2 (10:20→21:44)
--- NOTE | 2019-08-23 11:23 | PN ---
[facility] Progress Note Note: PATIENT SEEN FOR C/O RIGHT EYE REDNESS AND WHITE DISCHARGE. PATIENT STATES SHE WOKE UP THIS WAY AND STATES EYE IS ITCHY BUT DENIES VISUAL CHANGES. ALSO C/O LEFT FOOT PAIN, HAS TAY WRAP ORDERED. DENIES ANY RECENT FALLS/INJURIES TO FOOT. STATES PAIN IS LOCALIZED TO OUTER ASPECT OF FOOT WHICH CAUSES HER TO LIMP. Vital Signs Temperature 97.7 F 08/23/19 07:17 Pulse Rate 76 08/23/19 07:17 Respiratory Rate 16 08/23/19 07:17 Blood Pressure 132/76 08/23/19 07:17 O2 Sat by Pulse Oximetry (%) Laboratory Tests 08/22/19 12:00 Urine Color Yellow Urine Appearance Clear Urine pH 7.5 Ur Specific [place] 1.020 Urine Protein Negative Urine Glucose (UA) Negative Urine Ketones Negative Urine Blood 3+ H Urine Nitrite Negative Urine Bilirubin Negative Urine Urobilinogen 0.2 Ur Leukocyte Esterase Negative Urine WBC (Auto) 1 Urine RBC (Auto) 176 Urine Casts (Auto) 0 U Epithel Cells (Auto) 1.6 Urine Bacteria (Auto) 24.8 PE: ALERT AND ORIENTED X 3 SKIN WARM AND DRY RIGHT EYE SCLERA AND CONJUNCTIVAE RED, + INTACT CYST ON UPPER EYE LID, NO PUS VISIBLE BUT STATES SHE WOKE UP WITH WHITE DISCHARGE AT INNER CANTHUS AREA, + PERRLA, EOMS INTACT B EXT FULL ROM, NO VISIBLE SWELLING OR REDNESS OF BILATERAL FEET AMBULATING GUARDED DUE TO DISCOMFORT A/P CONJUNCTIVITIS OD LEFT FOOT PAIN WILL ORDER CIPRO EYE DROPS Q4H WA X ONE WEEK STRICT HANDWASHING CONTACT ISOLATION PRECAUTIONS FOR LEFT FOOT, CONTINUE TAY WRAP, ADD AMY CAO BID, MONITOR, IF PAIN CONTINUES, CONSIDER XRAY UA APPRECIATED, PT ON MENSES
[2019-08-23] MEDS: METHYL SALICYLATE/MENTHOL OINT 30 GM TUBE TP SCH ×2 (12:00→21:45)
[2019-08-23] MEDS: CIPROFLOXACIN HCL 0.3% OPHTH 2.5ML BOTTLE OD SCH ×3 (13:27→21:45)
[2019-08-23] MEDS ORDERED: PT OWN MED DRAWER 7, Y5N ONE ×2 (17:16→20:38)
[2019-08-23] MEDS: THIAMINE HCL 100 MG TABLET (FP) PO SCH (21:44)
[2019-08-23] MEDS: MELATONIN 5 MG TABLETS PO PRN (21:44)
[2019-08-24] MEDS: CIPROFLOXACIN HCL 0.3% OPHTH 2.5ML BOTTLE OD SCH ×5 (06:11→21:39)
[2019-08-24] MEDS: IBUPROFEN 400 MG TABLET (FP) PO PRN ×2 (06:12→17:23)
[2019-08-24] MEDS: NICOTINE 7 MG/24 HOURS TOPICAL PATCH TD SCH (10:35)
[2019-08-24] MEDS: SERTRALINE HCL 50 MG TABLET (FP) PO SCH (10:35)
[2019-08-24] MEDS: PRENATAL VITAMINS W/ FOLIC ACID TABLET (FP) PO SCH (10:35)
[2019-08-24] MEDS: METHYL SALICYLATE/MENTHOL OINT 30 GM TUBE TP SCH ×2 (10:37→21:39)
[2019-08-24] MEDS: ACETAMINOPHEN 325 MG TABLET (FP) PO PRN (10:39)
[2019-08-24] MEDS: MELATONIN 5 MG TABLETS PO PRN (21:39)
[2019-08-24] MEDS: THIAMINE HCL 100 MG TABLET (FP) PO SCH (21:39)
[2019-08-25] MEDS: ACETAMINOPHEN 325 MG TABLET (FP) PO PRN (04:13)
[2019-08-25] MEDS: CIPROFLOXACIN HCL 0.3% OPHTH 2.5ML BOTTLE OD SCH ×5 (06:54→21:44)
[2019-08-25] MEDS: IBUPROFEN 400 MG TABLET (FP) PO PRN ×2 (06:55→17:00)
[2019-08-25] MEDS: SERTRALINE HCL 50 MG TABLET (FP) PO SCH (10:28)
[2019-08-25] MEDS: NICOTINE 7 MG/24 HOURS TOPICAL PATCH TD SCH (10:28)
[2019-08-25] MEDS: PRENATAL VITAMINS W/ FOLIC ACID TABLET (FP) PO SCH (10:28)
[2019-08-25] MEDS: METHYL SALICYLATE/MENTHOL OINT 30 GM TUBE TP SCH ×2 (10:29→21:45)
--- NOTE | 2019-08-25 13:36 | PN ---
Psychiatric Progress Note Vital Signs: Vital Signs Period Temp Pulse Resp BP Sys/More Pulse Ox Last 24 Hr 97.9 F 76 16-18 138/82 Date of Session: 08/25/19 Chief Complaint:: " I'm not sleeping and i still feel a bit depressed and anxious." HPI: Patient admitted to [facility] for alcohol and cocaine dependence. Consultation ordered due to complaints of insomnia. ROS: Patient is calm, cooperative, alert +oriented x3. Current Medications: Active Medications Generic Name Dose Route Start Last Admin Trade Name Freq PRN Reason Stop Dose Admin Acetaminophen 650 mg 08/20/19 10:35 08/25/19 04:13 Tylenol - PO 650 mg Q4H PRN Administration FEVER Al Hydroxide/Mg Hydroxide 30 ml 08/20/19 10:35 08/22/19 16:56 Mylanta Oral Suspension - PO 30 ml Q6H PRN Administration DYSPEPSIA Ciprofloxacin 1 drop 08/23/19 14:00 08/25/19 10:29 Ciloxan 0.3% Eye Drops - OD 08/30/19 13:59 1 drop Q4HWA JASON Administration Colloidal Oatmeal 1 applic 08/22/19 14:13 08/23/19 10:17 Aveeno Soap - TP 1 bar DAILY PRN Administration HYGEINE Eucalyptus/Menthol/Phenol/Sorbitol 1 each 08/20/19 10:35 08/22/19 21:52 Cepastat Lozenge - MM 1 each Q4H PRN Administration SORE THROAT Guaifenesin 10 ml 08/20/19 10:35 Robitussin - PO Q6H PRN COUGH Ibuprofen 400 mg 08/20/19 10:35 08/25/19 06:55 Motrin - PO 400 mg Q6H PRN Administration Pain level 4-6 Loperamide HCl 4 mg 08/20/19 10:35 Imodium - PO Q6H PRN DIARRHEA Magnesium Citrate 300 ml 08/20/19 10:35 Citroma - PO Q48H PRN CONSTIPATION Magnesium Hydroxide 30 ml 08/20/19 10:35 Milk Of Magnesia - PO DAILY PRN CONSTIPATION Melatonin 5 mg 08/20/19 22:00 08/24/19 21:39 Melatonin PO 5 mg HS PRN Administration INSOMNIA Methyl Salicylate 1 applic 08/23/19 11:04 02/02/20 10:29 Yaniv-Garcia - TP 1 applic BID JASON Administration Nicotine 7 mg 08/20/19 10:45 08/25/19 10:28 Nicoderm Patch - TD 7 mg DAILY JASON Administration Multivit/Folic Acid/Iron 1 tab 08/21/19 10:00 08/25/19 10:28 Vitamins (Sjr) - PO 1 tab DAILY JASON Administration Pseudoephedrine/Triprolidine 1 combo 08/20/19 10:35 Actifed - PO TID PRN NASAL CONGESTION Sertraline HCl 100 mg 08/26/19 10:00 Zoloft - PO DAILY JASON Thiamine HCl 100 mg 08/20/19 22:00 08/24/19 21:39 Vitamin B1 - PO 100 mg HS JASON Administration Trazodone HCl 150 mg 08/25/19 22:00 Desyrel - PO HS JASON Medication(s) Change(s): Yes. Will d/c zoloft 50mg. Will order Zoloft 100mg daily + Trazodone 150mg HS. Current Side Effect: No Lab tests ordered: No Lab tests reviewed: Yes Provider note:: Patient reports feeling depressed, anxious, and difficulty sleeping. Medications reviewed. Trazodone 100mg discontinued ?? . Patient reports taking trazodone 100mg for several days but states it was ineffective. Will reorder trazodone at 150mg HS. Prior to admission to detox patient was prescribed zoloft 100mg at [facility] but had not taken the medication for three months. Will d/c zoloft 50mg and will order zoloft 100mg starting on 08/26/19. Benefits and side effects discussed. Verbal consent given. Total face to face time:: 25 Mental Status Exam - Mental Status Exam Alert and Oriented to: Time, Place, Person Cognitive Function: Good Patient Appearance: Well Groomed Mood: Sad Affect: Appropriate Patient Behavior: Appropriate, Cooperative Speech Pattern: Clear, Appropriate Voice Loudness: Normal Thought Process: Intact, Goal Oriented Thought Disorder: Not Present Hallucinations: Denies Suicidal Ideation: Denies Homicidal Ideation: Denies Insight/Judgement: Poor Sleep: Poorly Appetite: Fair Muscle strength/Tone: Normal Gait/Station: Normal Psychiatric Treatment Plan - Problem List (1) Cocaine use disorder Current Visit: Yes (2) Marijuana dependence Current Visit: Yes (3) Nicotine dependence Current Visit: Yes Qualifiers: Nicotine product type: cigarettes Substance use status: in withdrawal Qualified Code(s): F17.213 - Nicotine dependence, cigarettes, with withdrawal (4) MDD (major depressive disorder) Current Visit: Yes (5) Substance induced mood disorder Current Visit: Yes (6) Substance-induced sleep disorder Current Visit: Yes
[2019-08-25] MEDS ORDERED: PT OWN MED DRAWER 7, Y5N ONE (17:00)
[2019-08-25] MEDS: THIAMINE HCL 100 MG TABLET (FP) PO SCH (21:43)
[2019-08-25] MEDS: traZODone HCL 50 MG TABLET (FP) PO SCH (21:45)
[2019-08-26] MEDS: CIPROFLOXACIN HCL 0.3% OPHTH 2.5ML BOTTLE OD SCH ×5 (06:19→21:35)
[2019-08-26] MEDS: IBUPROFEN 400 MG TABLET (FP) PO PRN ×2 (06:20→21:36)
[2019-08-26] MEDS ORDERED: PT OWN MED DRAWER 7, Y5N ONE ×5 (06:23→17:48)
[2019-08-26] MEDS: SERTRALINE HCL 50 MG TABLET (FP) PO SCH (09:55)
[2019-08-26] MEDS: PRENATAL VITAMINS W/ FOLIC ACID TABLET (FP) PO SCH (09:55)
[2019-08-26] MEDS: NICOTINE 7 MG/24 HOURS TOPICAL PATCH TD SCH (09:55)
[2019-08-26] MEDS: METHYL SALICYLATE/MENTHOL OINT 30 GM TUBE TP SCH ×2 (09:56→21:35)
--- NOTE | 2019-08-26 14:45 | PN ---
[facility] Progress Note Note: Patient seen for follow up right eye conjunctivitis. Patient denies discharge to eyes, itching and visual changes. Vital Signs Temperature 97.8 F 08/26/19 07:04 Pulse Rate 102 H 08/26/19 07:04 Respiratory Rate 16 08/26/19 07:04 Blood Pressure 136/83 08/26/19 07:04 O2 Sat by Pulse Oximetry (%) Laboratory Tests 08/22/19 12:00 Urine Color Yellow Urine Appearance Clear Urine pH 7.5 Ur Specific [place] 1.020 Urine Protein Negative Urine Glucose (UA) Negative Urine Ketones Negative Urine Blood 3+ H Urine Nitrite Negative Urine Bilirubin Negative Urine Urobilinogen 0.2 Ur Leukocyte Esterase Negative Urine WBC (Auto) 1 Urine RBC (Auto) 176 Urine Casts (Auto) 0 U Epithel Cells (Auto) 1.6 Urine Bacteria (Auto) 24.8 PE alert and oriented x 3 +perrla, eoms intact bl mild redness to right eye, no exudate A/P conjunctivitis will d/c isolation continue cipro eye drops as ordered
[2019-08-26] MEDS: THIAMINE HCL 100 MG TABLET (FP) PO SCH (21:34)
[2019-08-26] MEDS: traZODone HCL 50 MG TABLET (FP) PO SCH (21:34)
[2019-08-27] MEDS: CIPROFLOXACIN HCL 0.3% OPHTH 2.5ML BOTTLE OD SCH ×5 (06:30→21:24)
[2019-08-27] MEDS: PRENATAL VITAMINS W/ FOLIC ACID TABLET (FP) PO SCH (10:34)
[2019-08-27] MEDS: SERTRALINE HCL 50 MG TABLET (FP) PO SCH (10:34)
[2019-08-27] MEDS: NICOTINE 7 MG/24 HOURS TOPICAL PATCH TD SCH (10:35)
[2019-08-27] MEDS: METHYL SALICYLATE/MENTHOL OINT 30 GM TUBE TP SCH ×2 (10:36→21:24)
[2019-08-27] MEDS: IBUPROFEN 400 MG TABLET (FP) PO PRN (10:38)
[2019-08-27] MEDS ORDERED: PT OWN MED DRAWER 7, Y5N ONE (10:46)
[2019-08-27] MEDS: traZODone HCL 50 MG TABLET (FP) PO SCH (21:24)
[2019-08-27] MEDS: THIAMINE HCL 100 MG TABLET (FP) PO SCH (21:24)
[2019-08-27] MEDS: MELATONIN 5 MG TABLETS PO PRN (21:24)
[2019-08-28] MEDS: CIPROFLOXACIN HCL 0.3% OPHTH 2.5ML BOTTLE OD SCH ×5 (07:34→21:20)
[2019-08-28] MEDS ORDERED: PT OWN MED DRAWER 7, Y5N ONE ×2 (09:01→17:49)
[2019-08-28] MEDS: NICOTINE 7 MG/24 HOURS TOPICAL PATCH TD SCH (10:04)
[2019-08-28] MEDS: SERTRALINE HCL 50 MG TABLET (FP) PO SCH (10:05)
[2019-08-28] MEDS: PRENATAL VITAMINS W/ FOLIC ACID TABLET (FP) PO SCH (10:05)
[2019-08-28] MEDS: METHYL SALICYLATE/MENTHOL OINT 30 GM TUBE TP SCH ×2 (10:06→21:21)
[2019-08-28] MEDS: IBUPROFEN 400 MG TABLET (FP) PO PRN (14:01)
[2019-08-28] MEDS: THIAMINE HCL 100 MG TABLET (FP) PO SCH (21:20)
[2019-08-28] MEDS: traZODone HCL 50 MG TABLET (FP) PO SCH (21:20)
[2019-08-28] MEDS: MELATONIN 5 MG TABLETS PO PRN (21:20)
[2019-08-29] MEDS: CIPROFLOXACIN HCL 0.3% OPHTH 2.5ML BOTTLE OD SCH ×5 (06:48→21:09)
[2019-08-29] MEDS ORDERED: PT OWN MED DRAWER 7, Y5N ONE ×2 (08:51→11:13)
[2019-08-29] MEDS: NICOTINE 7 MG/24 HOURS TOPICAL PATCH TD SCH (10:52)
[2019-08-29] MEDS: SERTRALINE HCL 50 MG TABLET (FP) PO SCH (10:52)
[2019-08-29] MEDS: PRENATAL VITAMINS W/ FOLIC ACID TABLET (FP) PO SCH (10:52)
[2019-08-29] MEDS: METHYL SALICYLATE/MENTHOL OINT 30 GM TUBE TP SCH ×2 (10:53→21:09)
[2019-08-29] MEDS: MELATONIN 5 MG TABLETS PO PRN (21:08)
[2019-08-29] MEDS: THIAMINE HCL 100 MG TABLET (FP) PO SCH (21:08)
[2019-08-29] MEDS: traZODone HCL 50 MG TABLET (FP) PO SCH (21:09)
[2019-08-30] MEDS ORDERED: PT OWN MED DRAWER 7, Y5N ONE ×3 (06:26→19:43)
[2019-08-30] MEDS: CIPROFLOXACIN HCL 0.3% OPHTH 2.5ML BOTTLE OD SCH ×2 (06:56→10:27)
[2019-08-30] MEDS: METHYL SALICYLATE/MENTHOL OINT 30 GM TUBE TP SCH ×2 (10:26→21:10)
[2019-08-30] MEDS: PRENATAL VITAMINS W/ FOLIC ACID TABLET (FP) PO SCH (10:26)
[2019-08-30] MEDS: SERTRALINE HCL 50 MG TABLET (FP) PO SCH (10:26)
[2019-08-30] MEDS: NICOTINE 7 MG/24 HOURS TOPICAL PATCH TD SCH (10:26)
[2019-08-30] MEDS: traZODone HCL 50 MG TABLET (FP) PO SCH (21:12)
[2019-08-30] MEDS: THIAMINE HCL 100 MG TABLET (FP) PO SCH (21:12)
[2019-08-30] MEDS: MELATONIN 5 MG TABLETS PO PRN (21:13)
[2019-08-31] MEDS: SERTRALINE HCL 50 MG TABLET (FP) PO SCH (09:56)
[2019-08-31] MEDS: NICOTINE 7 MG/24 HOURS TOPICAL PATCH TD SCH (09:56)
[2019-08-31] MEDS: METHYL SALICYLATE/MENTHOL OINT 30 GM TUBE TP SCH ×2 (09:56→21:30)
[2019-08-31] MEDS: PRENATAL VITAMINS W/ FOLIC ACID TABLET (FP) PO SCH (09:56)
[2019-08-31] MEDS: traZODone HCL 50 MG TABLET (FP) PO SCH (21:27)
[2019-08-31] MEDS: MELATONIN 5 MG TABLETS PO PRN (21:27)
[2019-08-31] MEDS: THIAMINE HCL 100 MG TABLET (FP) PO SCH (21:29)
[2019-08-31] MEDS: IBUPROFEN 400 MG TABLET (FP) PO PRN (21:29)
[2019-09-01] MEDS ORDERED: PT OWN MED DRAWER 7, Y5N ONE (08:37)
[2019-09-01] MEDS: SERTRALINE HCL 50 MG TABLET (FP) PO SCH (09:57)
[2019-09-01] MEDS: PRENATAL VITAMINS W/ FOLIC ACID TABLET (FP) PO SCH (09:57)
[2019-09-01] MEDS: NICOTINE 7 MG/24 HOURS TOPICAL PATCH TD SCH (09:57)
[2019-09-01] MEDS: METHYL SALICYLATE/MENTHOL OINT 30 GM TUBE TP SCH ×2 (09:58→21:26)
[2019-09-01] MEDS: MELATONIN 5 MG TABLETS PO PRN (21:26)
[2019-09-01] MEDS: THIAMINE HCL 100 MG TABLET (FP) PO SCH (21:26)
[2019-09-01] MEDS: traZODone HCL 50 MG TABLET (FP) PO SCH (21:27)
[2019-09-01] MEDS: IBUPROFEN 400 MG TABLET (FP) PO PRN (21:27)
[2019-09-02] MEDS: SERTRALINE HCL 50 MG TABLET (FP) PO SCH (09:47)
[2019-09-02] MEDS: METHYL SALICYLATE/MENTHOL OINT 30 GM TUBE TP SCH ×2 (09:47→21:40)
[2019-09-02] MEDS: PRENATAL VITAMINS W/ FOLIC ACID TABLET (FP) PO SCH (09:47)
[2019-09-02] MEDS: NICOTINE 7 MG/24 HOURS TOPICAL PATCH TD SCH (09:47)
[2019-09-02] MEDS: IBUPROFEN 400 MG TABLET (FP) PO PRN (09:49)
[2019-09-02] MEDS: traZODone HCL 50 MG TABLET (FP) PO SCH (21:02)
[2019-09-02] MEDS: THIAMINE HCL 100 MG TABLET (FP) PO SCH (21:03)
[2019-09-02] MEDS: MELATONIN 5 MG TABLETS PO PRN (21:03)
[2019-09-03] MEDS: PRENATAL VITAMINS W/ FOLIC ACID TABLET (FP) PO SCH (10:12)
[2019-09-03] MEDS: NICOTINE 7 MG/24 HOURS TOPICAL PATCH TD SCH (10:12)
[2019-09-03] MEDS: SERTRALINE HCL 50 MG TABLET (FP) PO SCH (10:12)
[2019-09-03] MEDS: METHYL SALICYLATE/MENTHOL OINT 30 GM TUBE TP SCH ×2 (10:13→21:15)
--- NOTE | 2019-09-03 12:08 | PN ---
Psychiatric Progress Note Vital Signs: Vital Signs Period Temp Pulse Resp BP Sys/More Pulse Ox Last 24 Hr 98.0 F 99 17-18 152/73 Date of Session: 09/03/19 Chief Complaint:: " I have anxiety." HPI: Patient admitted to [facility] for alcohol and cocaine dependence. Consultation ordered for anxiety. ROS: Patient is alert +oriented X3. Current Medications: Active Medications Generic Name Dose Route Start Last Admin Trade Name Freq PRN Reason Stop Dose Admin Acetaminophen 650 mg 08/20/19 10:35 08/25/19 04:13 Tylenol - PO 650 mg Q4H PRN Administration FEVER Al Hydroxide/Mg Hydroxide 30 ml 08/20/19 10:35 08/22/19 16:56 Mylanta Oral Suspension - PO 30 ml Q6H PRN Administration DYSPEPSIA Colloidal Oatmeal 1 applic 08/22/19 14:13 08/23/19 10:17 Aveeno Soap - TP 1 bar DAILY PRN Administration HYGEINE Eucalyptus/Menthol/Phenol/Sorbitol 1 each 08/20/19 10:35 08/22/19 21:52 Cepastat Lozenge - MM 1 each Q4H PRN Administration SORE THROAT Guaifenesin 10 ml 08/20/19 10:35 Robitussin - PO Q6H PRN COUGH Ibuprofen 400 mg 08/20/19 10:35 09/02/19 09:49 Motrin - PO 400 mg Q6H PRN Administration Pain level 4-6 Loperamide HCl 4 mg 08/20/19 10:35 Imodium - PO Q6H PRN DIARRHEA Magnesium Citrate 300 ml 08/20/19 10:35 Citroma - PO Q48H PRN CONSTIPATION Magnesium Hydroxide 30 ml 08/20/19 10:35 Milk Of Magnesia - PO DAILY PRN CONSTIPATION Melatonin 5 mg 08/20/19 22:00 09/02/19 21:03 Melatonin PO 5 mg HS PRN Administration INSOMNIA Methyl Salicylate 1 applic 08/23/19 11:04 09/03/19 10:13 Yaniv-Garcia - TP Not Given BID JASON Nicotine 7 mg 08/20/19 10:45 09/03/19 10:12 Nicoderm Patch - TD 7 mg DAILY JASON Administration Multivit/Folic Acid/Iron 1 tab 08/21/19 10:00 09/03/19 10:12 Vitamins (Sjr) - PO 1 tab DAILY JASON Administration Pseudoephedrine/Triprolidine 1 combo 08/20/19 10:35 Actifed - PO TID PRN NASAL CONGESTION Sertraline HCl 100 mg 08/26/19 10:00 09/03/19 10:12 Zoloft - PO 100 mg DAILY JASON Administration Thiamine HCl 100 mg 08/20/19 22:00 09/02/19 21:03 Vitamin B1 - PO 100 mg HS JASON Administration Trazodone HCl 150 mg 08/25/19 22:00 09/02/19 21:02 Desyrel - PO 150 mg HS JASON Administration Medication(s) Change(s): Yes. Will order Vistaril 25mg Q6H. Current Side Effect: No Lab tests ordered: No Lab tests reviewed: Yes Provider note:: Patient reports anxiety secondary to her discharge date on . Medications reviewed. Patient does not have an anxiolytic ordered PRN. Will order Vistaril 25mg q6h. Patient also requesting Melatonin PRN be sent to her pharmacy in addition with zoloft 100mg daily + Trazodone 150mg HS. Benefits and side effects discussed. Verbal consent given. Total face to face time:: 25 Mental Status Exam - Mental Status Exam Alert and Oriented to: Time, Place, Person Cognitive Function: Good Patient Appearance: Well Groomed Mood: Euthymic Affect: Mood Congruent Patient Behavior: Appropriate, Cooperative Speech Pattern: Clear, Appropriate Voice Loudness: Normal Thought Process: Intact, Goal Oriented Thought Disorder: Not Present Hallucinations: Denies Suicidal Ideation: Denies Homicidal Ideation: Denies Insight/Judgement: Poor Sleep: Fair Appetite: Fair Muscle strength/Tone: Normal Gait/Station: Normal Psychiatric Treatment Plan - Problem List (1) Cocaine use disorder Current Visit: Yes (2) Marijuana dependence Current Visit: Yes (3) Nicotine dependence Current Visit: Yes Qualifiers: Nicotine product type: cigarettes Substance use status: in withdrawal Qualified Code(s): F17.213 - Nicotine dependence, cigarettes, with withdrawal (4) MDD (major depressive disorder) Current Visit: Yes (5) Substance induced mood disorder Current Visit: Yes (6) Substance-induced sleep disorder Current Visit: Yes
[2019-09-03] MEDS: hydrOXYzine PAMOATE 25 MG CAPSULE (FP) PO PRN ×2 (15:10→19:55)
[2019-09-03] MEDS: ACETAMINOPHEN 325 MG TABLET (FP) PO PRN (19:55)
[2019-09-03] MEDS: MELATONIN 5 MG TABLETS PO PRN (21:15)
[2019-09-03] MEDS: traZODone HCL 50 MG TABLET (FP) PO SCH (21:15)
[2019-09-03] MEDS: THIAMINE HCL 100 MG TABLET (FP) PO SCH (21:15)
[2019-09-04] MEDS: METHYL SALICYLATE/MENTHOL OINT 30 GM TUBE TP SCH ×2 (09:48→21:05)
[2019-09-04] MEDS: NICOTINE 7 MG/24 HOURS TOPICAL PATCH TD SCH (09:48)
[2019-09-04] MEDS: SERTRALINE HCL 50 MG TABLET (FP) PO SCH (09:49)
[2019-09-04] MEDS: PRENATAL VITAMINS W/ FOLIC ACID TABLET (FP) PO SCH (09:49)
[2019-09-04] MEDS: hydrOXYzine PAMOATE 25 MG CAPSULE (FP) PO PRN (13:39)
[2019-09-04] MEDS ORDERED: PT OWN MED DRAWER 7, Y5N ONE (19:17)
[2019-09-04] MEDS: traZODone HCL 50 MG TABLET (FP) PO SCH (21:05)
[2019-09-04] MEDS: THIAMINE HCL 100 MG TABLET (FP) PO SCH (21:05)
[2019-09-04] MEDS: MELATONIN 5 MG TABLETS PO PRN (21:06)
--- NOTE | 2019-09-05 09:51 | PN ---
GI Progress Note Note: Psychiatric nurse practitioner note: Patient scheduled for discharge tomorrow. A 30 day prescription of Zoloft 100mg daily + Trazodone 150mg HS + melatonin 5mg HS was electronically sent to [facility] at [address] [place] [address].
[2019-09-05] MEDS: METHYL SALICYLATE/MENTHOL OINT 30 GM TUBE TP SCH ×2 (09:58→21:11)
[2019-09-05] MEDS: NICOTINE 7 MG/24 HOURS TOPICAL PATCH TD SCH (09:58)
[2019-09-05] MEDS: SERTRALINE HCL 50 MG TABLET (FP) PO SCH (09:58)
[2019-09-05] MEDS: PRENATAL VITAMINS W/ FOLIC ACID TABLET (FP) PO SCH (09:58)
[2019-09-05] MEDS: NICOTINE POLACRILEX 2 MG GUM BUC PRN (09:59)
--- NOTE | 2019-09-05 10:37 | DS ---
[facility] Rehab Discharge Summary - [facility] Rehab Discharge Summary Admission Date: 08/20/19 Discharge Date: 09/05/19 - History Present History: Alcohol dependence, Cannabis dependence, Cocaine dependence Pertinent Past History: 39year old female with history of alcohol dependence for Rehab - Discharge Physical Exam Vital Signs: Vital Signs Temperature 97.9 F 09/05/19 06:40 Pulse Rate 84 09/05/19 06:40 Respiratory Rate 16 09/05/19 06:40 Blood Pressure 116/80 09/05/19 06:40 O2 Sat by Pulse Oximetry (%) Pertinent Admission Physical Exam Findings: Physical General Appearance: No Apparent Distress, HEENTM: Normocephalic, Respiratory: Lungs Clear Neck: Supple, Cardiology:S1, S2, murmur Abdominal: +Bowel Sounds, Musculoskeletal: full range of Motion, Gait Steady, Neurological: roller billet mill II-XII NML intact, - Treatment Discharge Condition: Outpatient referral accepted (Medically stable for discharge.Patient is going to [facility] for [facility] Hospital Course: Patient attended groups, had 1:1 with her counselor, was seen by the psychiatric service. She was seen by medical for foot pain and conjunctivitis ( which required isolation). Both problems were treated successfully. - Medication Discharge Medications: Ambulatory Orders Sertraline HCl [Zoloft] 50 mg PO DAILY 08/13/19 Melatonin 5 mg PO HS #14 tablet 09/05/19 Melatonin 5 mg PO HS PRN #30 tab 09/05/19 Sertraline HCl [Zoloft] 100 mg PO DAILY #30 tablet 09/05/19 Trazodone HCl 150 mg PO HS #30 tablet 09/05/19 - Medication-Assisted Treatment (MAT) Medication-Assisted Treatment (MAT): No - Discharge Instructions Diet, activity, other medical instructions: Diet: as tolerated Activity: as tolerated Other medical instructions: please follow up with aftercare referral. - Diagnosis (1) Cocaine use disorder Current Visit: Yes Status: Chronic (2) Marijuana dependence Current Visit: Yes Status: Chronic (3) Alcohol dependence with withdrawal, uncomplicated Current Visit: No Status: Chronic - Follow-up Referral Minutes to complete discharge: 15 - AMA Did Patient Leave Against Medical Advice: No
[2019-09-05] MEDS: hydrOXYzine PAMOATE 25 MG CAPSULE (FP) PO PRN ×2 (13:36→20:09)
[2019-09-05] MEDS: MELATONIN 5 MG TABLETS PO PRN (21:11)
[2019-09-05] MEDS: traZODone HCL 50 MG TABLET (FP) PO SCH (21:11)
[2019-09-05] MEDS: THIAMINE HCL 100 MG TABLET (FP) PO SCH (21:11)
[2019-09-05] MEDS: IBUPROFEN 400 MG TABLET (FP) PO PRN (21:12)
[2019-09-06 07:08] VITALS: BP 112/74; PULSE 86; TEMP 97.7
--- NOTE | 2019-09-06 08:28 | PN ---
[facility] Progress Note Note: Pt is a 39 y/o female admitted to rehab and discharged today as scheduled. Vital Signs - 24 hr 09/06/19 09/06/19 09/06/19 01:06 03:37 06:33 Temperature 97.7 F Pulse Rate 86 Respiratory 16 18 18 Rate Blood Pressure 112/74 Alert o x 3,well groomed nsd oob ambulating with steady gait. A/P Medically stable D/C pt today follow up with CD aftercare referral as recommended.
[2019-09-06] MEDS: NICOTINE 7 MG/24 HOURS TOPICAL PATCH TD SCH (09:04)
[2019-09-06] MEDS: SERTRALINE HCL 50 MG TABLET (FP) PO SCH (09:04)
[2019-09-06] MEDS: PRENATAL VITAMINS W/ FOLIC ACID TABLET (FP) PO SCH (09:04)
[2019-09-06] MEDS: NICOTINE POLACRILEX 2 MG GUM BUC PRN (09:05)
[2019-09-06] MEDS: METHYL SALICYLATE/MENTHOL OINT 30 GM TUBE TP SCH (09:05)
== END 2019-09-06 09:19 | disposition home or self-care (01) | DRG 772 ==
LOC: YASAS 08:12 → Y3E 10:23
PROVIDERS: ADMIT Allergy & Immunology; ATTEND Allergy & Immunology
PROC: HZ42ZZZ Group Counseling for Substance Abuse Treatment, Cognitive-Behavioral (ICD-10-PCS; principal; 2019-08-20)
DX: F10.20 Alcohol dependence, uncomplicated (principal); F14.20 Cocaine dependence, uncomplicated; F12.20 Cannabis dependence, uncomplicated; F17.210 Nicotine dependence, cigarettes, uncomplicated; F33.9 Major depressive disorder, recurrent, unspecified; F19.24 Other psychoactive substance dependence with psychoactive substance-induced mood disorder; F19.282 Other psychoactive substance dependence with psychoactive substance-induced sleep disorder; D50.9 Iron deficiency anemia, unspecified; H10.31 Unspecified acute conjunctivitis, right eye; M79.672 Pain in left foot; M79.89 Other specified soft tissue disorders; R01.1 Cardiac murmur, unspecified; Z98.51 Tubal ligation status; Z91.410 Personal history of adult physical and sexual abuse
CPT/HCPCS: 81003; 90732; G0008; G0009; Q2036

== ENCOUNTER 2020-07-13 10:12 | Emergency (ER) | payer OTHER ==
[2020-07-13 10:34] VITALS: BP 116/64; PULSE 93; TEMP 98.1; BMI 25.7
[2020-07-13] MEDS ORDERED: ACETAMINOPHEN 325 MG TABLET (FP) PO ONE (10:49)
== END 2020-07-13 19:39 | disposition home or self-care (01) ==
LOC: JER 10:12
DX: R05 Cough (principal)
CPT/HCPCS: 71046-TC-FY; 87804; 99284-25; C9803; U0003